=== PATIENT | male | born 1950 | race Caucasian/White ===

== ENCOUNTER 2016-11-10 12:52 | Inpatient (IN) | payer MEDICARE, OTHER ==
--- NOTE | ~2016-11-10 | HP ---
History And Physical [id number] [place]. [address] NAME: MEAGHAN FUENTES : 52 STATUS : ADM IN [facility]#: [id number] AGE: 66 ADM/REG DATE : 11/10/16 MR#: [id number] REPORT SERV DATE: 11/12/16 DICTATED BY: RIGOBERTO VAIL DATE: 11/11/16 REPORT STATUS : Draft TRANSCRIBED BY: MODMahad DATE: 11/11/16 DATE OF ADMISSION: 11/10/2016 CHIEF COMPLAINT: Change in normal attitude and fever. HISTORY OF PRESENT ILLNESS: The patient is a 66-year-old male with past medical history of Traverse's disease, dementia, ND with stent, COPD, pneumonia, PEG tube, who presents from [facility] with generalized weakness, change in overall function of mental status, although baseline appears to be fairly debilitated, minimally verbal except for a few noises. Also had reported fever. They have been constant, moderate severity. No pain or radiating symptoms have been reported per ER and EMS, as HPI is very difficult to obtain from the patient secondary to his mental status baseline. Additionally, the patient was reported to have cough, fever, or shortness of breath, but no reported swelling, nausea, or vomiting. Has been tolerating feeds. The patient is unable to report any worsening or relieving factors, but symptoms are still obviously present. Mental status, unable to obtain from the patient due to mental status, but were reported with fever, shortness of breath, and cough. PAST MEDICAL HISTORY: Obtained from [facility] on line, COPD, pneumonia, ND, stent history, dementia, PEG, Thuy's disease, chronic debility. SURGICAL HISTORY: PEG tube placement, ex lap. SOCIAL HISTORY: [facility]. No known alcohol, tobacco, or illicit use. FAMILY HISTORY: Thuy's per record, reports mother, sister, and two brothers. ALLERGIES: NO KNOWN DRUG ALLERGIES. HOME MEDICATIONS: Tylenol, duo nebs, aspirin, baclofen, Dulcolax, Cipro, Colace, Seroquel, Effexor, Geodon. PHYSICAL EXAMINATION: VITAL SIGNS: Blood pressure 134/43, temperature 97.9, pulse 106, respirations 20, O2 saturations 100% on 4 L. GENERAL: Thin, frail, ill appearing. Does interact and tracks, but interacts only with occasional motion or hand gesture, but very difficult for purposeful interaction at this time. EYES: No scleral icterus. ENT: Dry mucous membranes with poor dentition, poor oral care. NECK: No JVD. Supple. RESPIRATORY: Clear to auscultation. No wheezes. CHEST: Equal chest expansion. CV: Mildly tachycardic. No rubs. Cap refill less than 2 seconds. Warm extremities. GI: PEG tube with mild redness around PEG tube site. Nondistended. : Alas now placed. Normal external genitalia. History And Physical [address] [address] NAME: MEAGHAN FUENTES : 52 STATUS : ADM IN [facility]#: [id number] AGE: 66 ADM/REG DATE : 11/10/16 MR#: [id number] REPORT SERV DATE: 11/12/16 DICTATED BY: RIGOBERTO VAIL DATE: 11/11/16 REPORT STATUS : Draft TRANSCRIBED BY: KD DATE: 11/11/16 MUSCULOSKELETAL: Atrophied. Mild madison. Does have stage 1 on pressure site. SKIN: Warm and dry. Stage 1 ulcers on pressure sites including heels and dry skin. LYMPH: No cervical or supraclavicular lymphadenopathy grossly. HEME: No bleeding or bruising. NEURO: No chorea movements currently, but unclear baseline mental status, although is awake. Appears to be tracking. Very minimal purposeful communication interaction throughout stay. Atrophied muscles throughout. PSYCH: Unable to assess appropriately secondary to mental status. LABORATORY DATA: UA, large leukocyte esterase and nitrites. CMP; sodium of 176 confirmed on repeat, potassium 4.3, chloride 137, BUN and creatinine 64 and 0.93, glucose of 102, AST and ALT 53 and 79 respectively, lipase 264. CBC; WBC count 12, H and H 13.7 and 47.3, platelets 78, Legionella strep screen negative. Ammonia 34. BNP 47.2. Portable chest, no pleural effusion. Atelectatic bases. EKG, tachycardic. ASSESSMENT AND PLAN: 1. Hypovolemic hypernatremia, severe. 2. Acute metabolic encephalopathy. 3. Urinary tract infection. 4. Tachycardia. 5. Traverse's disease. 6. Chronic obstructive pulmonary disease history. 7. PEG tube/nutrition. 8. Elevated liver function tests. 9. Azotemia secondary to volume dehydration, present on arrival. 10.Stage I ulcers present on arrival with only mild redness. 11.Hypertension. 12.Coronary artery disease. 13.DNR. PLAN: 1. Hypovolemic hypernatremia. The patient with clinical hypovolemia with dry mucous membranes. Mild skin tenting. Dry membranes. Free water deficit calculated approximately 8.6 L. Does have possible lethargy if not encephalopathy component, but no seizure or coma episodes noted. We will need to monitor on telemetry. Serial BMPs to monitor for improvement and for cerebral osmotic shift. Goal for 6 to 10 mEq/L a day decrease. The patient's sodium was confirmed. The patient is on multiple medications that could be confounded including Geodon. We will decrease dose, limit medications as needed. Serum OSM and urine studies pending. We will give D5 1/2 W, water infusion at rate of 100 to attempt goal rate. Decrease with serial monitoring. Additionally, place on free water flushes 350 q.3 to 4 hours and have Nutrition also reassess. 2. Acute encephalopathy. Treat underlying hypernatremia and urinary tract infection. Optimize electrolytes. 3. Urinary tract infection. IV antibiotics. 4. Azotemia with volume depletion. IV fluids. Monitor closely electrolyte imbalance. Alas placed for strict I's and O's. History And Physical [address] [address] NAME: MEAGHAN FUENTES : 52 STATUS : ADM IN [facility]#: [id number] AGE: 66 ADM/REG DATE : 11/10/16 MR#: [id number] REPORT SERV DATE: 11/12/16 DICTATED BY: RIGOBERTO VAIL DATE: 11/11/16 REPORT STATUS : Draft TRANSCRIBED BY: MODMahad DATE: 11/11/16 5. Traverse's disease. Supportive. 6. Chronic obstructive pulmonary disease history. O2 p.r.n. 7. PEG tube nutrition. Resume tube feedings Jevity 1.5 at 30, goal rate 60 as tolerated. 8. Elevated LFTs. We will need to monitor. 9. Dementia history. Monitor. Reassess home medications. Possible confounders for hypernatremia. 10.Stage I ulcers. Barrier care with Mepilex and frequent turning. 11.Hypertension. Monitor. 12.Coronary artery disease. Continue home medications as tolerated. 13.DNR with POLST form. The patient with guarded prognosis due to underlying medical issues that were present on arrival and comorbidities. DDN/MODL Rigoberto Vail MD / [id number] CC: Royal Soto MD
--- NOTE | ~2016-11-10 | CN ---
Consultation Report [facility] [address] [place]. [address] NAME: MEAGHAN FUENTES : 52 STATUS : ADM IN [facility]#: [id number] AGE: 66 ADM/REG DATE : 11/10/16 MR#: [id number] REPORT SERV DATE: 11/11/16 DICTATED BY: LAUREANO HARDEN DATE: 11/10/16 REPORT STATUS : Draft TRANSCRIBED BY: MODL DATE: 11/10/16 NEPHROLOGY CONSULTATION DATE OF CONSULTATION: Nephrology consult from Dr. Foster. The consult is for severe hypernatremia. HISTORY OF PRESENT ILLNESS: Mr. 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 He is a [facility] resident and has significant dementia due to his neurologic condition, and he is currently a DNR status. He has a PEG tube and chronic indwelling Alas catheter and has a baseline water administration of 350 mL q.4 hours per [facility] report. He was recently treated with Cipro for an acute bronchitis, which he was treated for five days with and then presented to [facility] with fever and altered mental status and found to have severe dehydration with a sodium of 176 and was admitted to the hospital. He was initially given half normal saline with a reduction in his sodium to 175 and so he was changed to D5 water at 80 mL/h and was written for continuation of his PEG tube water. His urinary tract infection is being treated with ceftriaxone. He is unable to contribute at all to his history and chart review yields limited recent records per prior discharge summary. PAST MEDICAL HISTORY: Includes Thuy's chorea, coronary artery disease, hypertension, dyslipidemia, and history of acute kidney injury in the setting of hypovolemia and aspiration pneumonia from 2013. HOME MEDICATIONS: Include Tylenol; albuterol; DuoNeb; aspirin 81 mg daily; baclofen; Dulcolax; Cipro, last dose on 11/09/2016; Colace; Marylou; Lasix 40 mg daily; galantamine hydrobromide 8 mg b.i.d.; lactulose; metoprolol 12.5 mg b.i.d., milk of magnesia; polyethylene glycol; potassium 20 mEq b.i.d.; Seroquel 100 mg at bedtime; Effexor 75 mg b.i.d.; and Geodon IM as needed. He does not have family immediately available. ALLERGIES: NONE. FAMILY HISTORY: Unobtainable due to his mental status. SOCIAL HISTORY: Unobtainable due to his mental status. REVIEW OF SYSTEMS: Unobtainable due to his mental status. PHYSICAL EXAMINATION: VITAL SIGNS: Temperature is 98.2 and he has been afebrile here in the hospital, blood pressure 114/76, pulse of 115, respirations of 20, and O2 saturation 100%. Weight is bed weight and appears to be in the order of 125 pounds. Consultation Report [id number] [facility] [place]. [address] NAME: MEAGHAN FUENTES : 52 STATUS : ADM IN [facility]#: [id number] AGE: 66 ADM/REG DATE : 11/10/16 MR#: [id number] REPORT SERV DATE: 11/11/16 DICTATED BY: LAUREANO HARDEN DATE: 11/10/16 REPORT STATUS : Draft TRANSCRIBED BY: KD DATE: 11/10/16 GENERAL: His temples were shrunken when patient opens eyes, but is nonverbal. HEENT: His sclerae appear to be anicteric. His mucous membranes extremely dry. No JVD. CARDIOVASCULAR EXAM: S1, S2. Regular rate and rhythm without murmurs, rubs, or gallops. LUNGS: Clear to auscultation. Positive bowel sounds. Soft, nontender. No peripheral edema. No noted rash. SKIN: Dry. Skin turgor is somewhat poor. LABORATORY DATA: His sodium 135, potassium 3.3, chloride 137, bicarb 34, BUN 61, creatinine 0.84, glucose is 139, calcium is 8.3, magnesium 3.1, and phosphorus is 2.9. AST is 53, ALT 79. Lipase is 264 and ammonia of 34. His brain natriuretic peptide is 47, and his serum Osmo is 388. White count of 12, hemoglobin of 13.7, platelets of 78. His UA shows positive large leukocyte esterase, positive nitrate, greater than 182 white cells, and 20 red cells, many bacteria, 1 hyaline cast. ASSESSMENT AND PLAN: 1. Hypernatremia with dehydration in the setting of urinary tract infection, he may have been febrile to increase his insensible losses, but it is surprising that with his reported 2 L of water per day that he would have become less dehydrated. His water deficit depends on his weight, which is somewhat unreliable but essentially he appears to have at least 3.5 L deficit of free water. He is a gentleman who may only weigh 55- 60 kg. This is a severe hyponatremia and does increase his mortality. I would replete this water deficit slowly with a goal to keep his rate of correction 10 points per day or less and corrected over at least 3 days if not a little longer. I would check his labs every 6 hours to ensure that the rate of correction is appropriate and I would continue his home PEG water of approximately 2 L per day and add D5 water at 80 mL/h which will give him another 2 L a day. Will need to take into account ongoing losses for which urine electrolytes, strict I's and O's and attention to fevers, sweating, etc., will be important and his IV D5 water can be adjusted as needed. 2. Urinary tract infection. Agree with ceftriaxone. He has a chronic indwelling Alas catheter which may need to be changed. We will defer this to the primary. 3. Dementia with Nodaway's chorea. Per primary, patient is essentially nonverbal. Partners to follow tomorrow. ANNEMARIE/KD Laureano Harden MD / [id number] CC: Royal Stoo MD
--- NOTE | ~2016-11-10 | DS ---
Discharge Summary [facility] [address] [place]. 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 He was recently treated with Cipro for acute bronchitis, then came in to [facility] with fever, encephalopathy, severe sepsis due to UTI with severe dehydration, sodium 176. Placed on half normal saline and then was changed to D5 water and given 350 mL every four hours via his PEG and free water flushes. Placed on Rocephin. The patient's altered mental status did improve, was able to track with his eyeballs, and did have some screaming episodes consistent with Lamoure's dementia with psychiatric contribution. Placed back on his Seroquel, but lower dose. The patient's UTI eventually was sensitive to Macrobid and changed to Macrobid. The patient did not appear to have significant adrenal insufficiency. Sodium was corrected. White count was down to normal now. He was able to track with eyes, near his baseline mental status. The patient has very poor prognosis. Given his lack of mobility and interaction and inability to do ADLs due to Thuy's dementia, we spoke with the daughter and are considering discharge from facility to home with hospice if failure to thrive continues. The patient likely has atelectasis associated with low lung volumes, needs incentive spirometry. DISCHARGE MEDICATIONS: At this time will be aspirin 81 p.o. daily; lactulose 30 mL p.o. t.i.d.; Macrobid 100 p.o. b.i.d.; Seroquel 25 p.o. at bedtime; Effexor 75 p.o. b.i.d.; metoprolol tartrate 12.5 p.o. b.i.d., hold systolic less than 110; MiraLAX powder one packet daily; Ativan 0.5 per PEG t.i.d. p.r.n. agitation; Geodon p.r.n.; baclofen p.r.n.; KCl 10 mEq p.o. daily via PEG; free water flush 300 mL q.4 via PEG, facility incentive spirometry. Discharge today to facility on nasal cannula. Follow up with Neurology in four to eight weeks if has one. Follow up with PCP in two weeks. Consider possible hospice as an outpatient. We will make a referral at this time if family is interested. DISCHARGE DIAGNOSES: Severe dehydration; hypernatremia; severe sepsis due to urinary tract infection, Escherichia coli; Lamoure's chorea; thrombocytopenia, peripheral smear pending; hyperammonemia, improved; poor prognosis; failure to thrive. All questions were answered. It took well over 30 minutes to do. WST/KD Magdaleno Gonzalez DO / [id number] Discharge Summary [address] [address] NAME: MEAGHAN FUENTES : 52 STATUS : DIS IN PAT#: [id number] AGE: 66 ADM/REG DATE : 11/10/16 MR#: [id number] REPORT SERV DATE: 11/17/16 DICTATED BY: MAGDALENO GONZALEZ DATE: 11/16/16 REPORT STATUS : Draft TRANSCRIBED BY: MODL DATE: 11/16/16 CC: Magdaleno Gonzalez DO
[~2016-11-10 12:52] MED LIST: ALLEGRA-D24 HOUR PO; ALLEGRA180 PEG; ASAB PEG; ASAB PO; ATV.5 PEG; ATV.5 PO; BACTROINT TOP; EFFEX75 PEG; EFFEX75 PO; FLEX PEG; FLEX PO; HALDOL.5 PEG; HALDOL.5 PO; KLOR-CON 1010 MEQ PO; L40 PEG; L40 PO; LOP25 PEG; LOP25 PO; MEVACOR PEG; MEVACOR PO; MICRO-K10 MEQ PEG; RAZADYNE8 MG PEG; RAZADYNE8 MG PO; SEROQUEL1C PEG; SEROQUEL1C PO; TYLENOL ARTH650 MG PO; VANCO500 IV
[2016-11-10 13:39] LABS: BASOPHILS 0.1 %; BASOPHILS ABSOLUTE 0.01 10/3/uL (0.0-0.16); EOSINOPHILS 0.4 %; EOSINOPHILS ABSOLUTE 0.05 10/3/uL (0.0-0.53); ER CBC TAT 0 Hrs 10 Mins; HEMATOCRIT 47.3 % (40.0-51.0); HEMOGLOBIN 13.7 g/dL (13.6-17.8); IMMATURE GRANULOCYTES 0.2 %; IMMATURE GRANULOCYTES ABSOLUTE 0.02 10/3/uL (0.0-0.11); LYMPHOCYTES 9.7 %; LYMPHOCYTES ABSOLUTE 1.17 10/3/uL (0.67-4.30); MANUAL DIFF NO %; MEAN CORPUSCULAR HEMOGLOB 32.3 pg (26.0-34.0); MEAN CORPUSCULAR VOLUME 111.6 fL (80-100); MEAN PLATELET VOLUME 14.3 fL (9.2-13.0); MONOCYTES 6.8 %; MONOCYTES ABSOLUTE 0.82 10/3/uL (0.21-1.20); NEUTROPHILS 82.8 %; NEUTROPHILS ABSOLUTE 9.96 10/3/uL (2.02-8.40); PLATELET COUNT 78 10/3/uL (150-400); RBC DISTRIBUTION WIDTH 16.1 % (12.0-16.0); RED CELL COUNT 4.24 10/6/uL (4.7-6.1)
[2016-11-10 13:44] LABS: ASCORBIC ACID (UR NOT ORDER) 40 (NEG); BILIRUBIN, URINE NEGATIVE (NEG); ER URINALYSIS TAT 0 Hrs 15 Mins; KETONE, URINE NEGATIVE (NEG); LEUKOCYTE ESTERASE(NOT OR LARGE (NEG); NITRITE (URINE) POS (NEG); WBC (NOT ORDERED) (RFLEX) > 182 (0-5)
[2016-11-10 13:54] LABS: A/G RATIO 0.6 (0.7-1.9); ALBUMIN 2.6 G/DL (3.5-5.0); CALCIUM, SERUM 8.6 MG/DL (8.5-10.4); CO2 (CARBON DIOXIDE) 33 MMOL/L (24-34); CREATININE 0.93 MG/DL (0.70-1.30); GFR AFRICAN AMERICAN 99 ML/MIN (>=60); GFR NON AFRICAN AMERICAN 86 ML/MIN (>=60); GLOBULIN 4.6 G/DL (2.5-4.1); GLUCOSE, SERUM 102 MG/DL (60-99); SGPT(ALT) 79 U/L (5-65); TOTAL BILIRUBIN 0.6 MG/DL (0-1.2); TOTAL PROTEIN 7.2 G/DL (6.0-8.5)
[2016-11-10 13:55] LABS: ALKALINE PHOSPHATASE 78 U/L (45-117); BUN (BLOOD UREA NITROGEN) 64 MG/DL (6-23); CHLORIDE, SERUM 137 MMOL/L (96-112); SODIUM, SERUM 176 MMOL/L (135-148)
[2016-11-10 13:58] LABS: POTASSIUM, SERUM 4.3 MMOL/L (3.5-5.3); SGOT(AST) 53 U/L (5-40)
[2016-11-10] MEDS ORDERED: CIP5 PEG (14:25)
[2016-11-10] MEDS ORDERED: ASAB PEG (14:25)
[2016-11-10] MEDS ORDERED: ALLEGRA180 PEG (14:26)
[2016-11-10] MEDS ORDERED: L40 PEG (14:27)
[2016-11-10] MEDS ORDERED: RAZADYNE8 MG PEG (14:27)
[2016-11-10 14:28] LABS: PLATELET ESTIMATE DEC (ADEQUATE)
[2016-11-10] MEDS ORDERED: LOP25 PEG (14:28)
[2016-11-10 14:29] LABS: GIANT PLATELET RARE
[2016-11-10] MEDS ORDERED: MIRALAX POWDER1 PKT PEG (14:29)
[2016-11-10] MEDS ORDERED: KCL20UDL PEG (14:29)
[2016-11-10] MEDS ORDERED: SEROQUEL1C PEG (14:31)
[2016-11-10] MEDS ORDERED: EFFEX75 PEG (14:31)
[2016-11-10] MEDS ORDERED: BISR PR (14:33)
[2016-11-10] MEDS ORDERED: 8 HOUR650 MG PEG (14:33)
[2016-11-10] MEDS ORDERED: LIOR10 PEG (14:33)
[2016-11-10] MEDS ORDERED: DSS PEG (14:34)
[2016-11-10] MEDS ORDERED: DUONEB INH (14:35)
[2016-11-10] MEDS ORDERED: [UNRECOGNIZED DRUG - OTHER] IM (14:36)
[2016-11-10] MEDS ORDERED: ATV.5 PEG (14:37)
[2016-11-10] MEDS ORDERED: CONSTULOSE PEG (14:37)
[2016-11-10] MEDS ORDERED: MOMUD PEG (14:38)
[2016-11-10 16:24] LABS: BUN (BLOOD UREA NITROGEN) 63 MG/DL (6-23); CALCIUM, SERUM 7.9 MG/DL (8.5-10.4); CHLORIDE, SERUM 138 MMOL/L (96-112); CO2 (CARBON DIOXIDE) 33 MMOL/L (24-34); GFR AFRICAN AMERICAN 104 ML/MIN (>=60); GFR NON AFRICAN AMERICAN 89 ML/MIN (>=60); POTASSIUM, SERUM 3.9 MMOL/L (3.5-5.3)
[2016-11-10 16:26] LABS: GLUCOSE, SERUM 128 MG/DL (60-99); SODIUM, SERUM 176 MMOL/L (135-148)
[2016-11-10 19:01] LABS: PHOSPHORUS, SERUM 2.9 MG/DL (2.5-4.5); ULTRASENSITIVE TSH 0.867 MCIU/ML (0.358-3.740)
[2016-11-10 19:58] LABS: BUN (BLOOD UREA NITROGEN) 61 MG/DL (6-23); CALCIUM, SERUM 8.3 MG/DL (8.5-10.4); CHLORIDE, SERUM 137 MMOL/L (96-112); CO2 (CARBON DIOXIDE) 34 MMOL/L (24-34); CREATININE 0.84 MG/DL (0.70-1.30); GFR AFRICAN AMERICAN 106 ML/MIN (>=60); GFR NON AFRICAN AMERICAN 92 ML/MIN (>=60); GLUCOSE, SERUM 139 MG/DL (60-99); POTASSIUM, SERUM 3.3 MMOL/L (3.5-5.3)
[2016-11-10 19:59] LABS: SODIUM, SERUM 175 MMOL/L (135-148)
[2016-11-10 20:08] LABS: B NATRIURETIC PEPTIDE (BNP) 47.2 PG/ML (< 100.0)
[2016-11-11 06:39] LABS: MEAN CORPUS HGB CONC 29.1 g/dL (32.0-36.0); MEAN CORPUSCULAR HEMOGLOB 32.3 pg (26.0-34.0); MEAN CORPUSCULAR VOLUME 111.2 fL (80-100); MEAN PLATELET VOLUME 13.6 fL (9.2-13.0); PLATELET COUNT 56 10/3/uL (150-400); RBC DISTRIBUTION WIDTH 15.9 % (12.0-16.0); WHITE BLOOD CELLS 8.1 10/3/uL (4.5-10.5)
[2016-11-11 06:43] LABS: HEMATOCRIT 36.8 % (40.0-51.0); HEMOGLOBIN 10.7 g/dL (13.6-17.8); MANUAL DIFF YES %; RED CELL COUNT 3.31 10/6/uL (4.7-6.1)
[2016-11-11 06:54] LABS: AMMONIA 41 UMOL/L (11-32)
[2016-11-11 06:58] LABS: ALBUMIN 2.4 G/DL (3.5-5.0); CALCIUM, SERUM 8.5 MG/DL (8.5-10.4); CHLORIDE, SERUM 132 MMOL/L (96-112); CO2 (CARBON DIOXIDE) 34 MMOL/L (24-34); CREATININE 0.68 MG/DL (0.70-1.30); GFR AFRICAN AMERICAN 116 ML/MIN (>=60); GFR NON AFRICAN AMERICAN 100 ML/MIN (>=60); GLUCOSE, SERUM 146 MG/DL (60-99); POTASSIUM, SERUM 3.4 MMOL/L (3.5-5.3); SGOT(AST) 33 U/L (5-40); SGPT(ALT) 57 U/L (5-65); TOTAL BILIRUBIN 0.8 MG/DL (0-1.2); TOTAL PROTEIN 5.8 G/DL (6.0-8.5)
[2016-11-11 07:00] LABS: A/G RATIO 0.7 (0.7-1.9); ALKALINE PHOSPHATASE 63 U/L (45-117); BUN (BLOOD UREA NITROGEN) 54 MG/DL (6-23); GLOBULIN 3.4 G/DL (2.5-4.1); SODIUM, SERUM 170 MMOL/L (135-148)
[2016-11-11 07:15] LABS: BAND NEUTROPHILS 6 %; EOSINOPHILS 3 %; EOSINOPHILS ABSOLUTE (CALC) 0.24 10/3/uL (0.0-0.53); LYMPHOCYTES 15 %; LYMPHOCYTES ABSOLUTE (CALC) 1.22 10/3/uL (0.67-4.30); MONOCYTES 8 %; MONOCYTES ABSOLUTE (CALC) 0.65 10/3/uL (0.21-1.20); NEUTROPHILS ABSOLUTE (CALC) 5.99 10/3/uL (2.02-8.40); PLATELET ESTIMATE DEC (ADEQUATE); SEGMENTED NEUTROPHIL (0) 68 %; TOTAL NUCLEATED CELLS 100
[2016-11-11 09:11] LABS: BUN (BLOOD UREA NITROGEN) 51 MG/DL (6-23); CALCIUM, SERUM 8.2 MG/DL (8.5-10.4); CHLORIDE, SERUM 133 MMOL/L (96-112); CO2 (CARBON DIOXIDE) 31 MMOL/L (24-34); CREATININE 0.57 MG/DL (0.70-1.30); GFR AFRICAN AMERICAN 125 ML/MIN (>=60); GFR NON AFRICAN AMERICAN 108 ML/MIN (>=60); GLUCOSE, SERUM 149 MG/DL (60-99); POTASSIUM, SERUM 3.2 MMOL/L (3.5-5.3); SODIUM, SERUM 170 MMOL/L (135-148)
[2016-11-11 09:50] LABS: CREATININE, URINE 61.3 MG/DL
[2016-11-11 12:09] LABS: BUN (BLOOD UREA NITROGEN) 48 MG/DL (6-23); CALCIUM, SERUM 8.3 MG/DL (8.5-10.4); CHLORIDE, SERUM 132 MMOL/L (96-112); CO2 (CARBON DIOXIDE) 31 MMOL/L (24-34); GFR AFRICAN AMERICAN 122 ML/MIN (>=60); GFR NON AFRICAN AMERICAN 106 ML/MIN (>=60); GLUCOSE, SERUM 146 MG/DL (60-99)
[2016-11-11 12:10] LABS: POTASSIUM, SERUM 4.3 MMOL/L (3.5-5.3); SODIUM, SERUM 167 MMOL/L (135-148)
[2016-11-11 17:59] LABS: BUN (BLOOD UREA NITROGEN) 46 MG/DL (6-23); CALCIUM, SERUM 8.1 MG/DL (8.5-10.4); CHLORIDE, SERUM 129 MMOL/L (96-112); CO2 (CARBON DIOXIDE) 30 MMOL/L (24-34); CREATININE 0.55 MG/DL (0.70-1.30); GFR AFRICAN AMERICAN 127 ML/MIN (>=60); GFR NON AFRICAN AMERICAN 109 ML/MIN (>=60); GLUCOSE, SERUM 148 MG/DL (60-99); POTASSIUM, SERUM 3.7 MMOL/L (3.5-5.3)
[2016-11-11 18:01] LABS: SODIUM, SERUM 164 MMOL/L (135-148)
[2016-11-12 03:48] LABS: BASOPHILS 0.3 %; BASOPHILS ABSOLUTE 0.02 10/3/uL (0.0-0.16); EOSINOPHILS 3.9 %; EOSINOPHILS ABSOLUTE 0.24 10/3/uL (0.0-0.53); HEMATOCRIT 33.6 % (40.0-51.0); HEMOGLOBIN 9.8 g/dL (13.6-17.8); IMMATURE GRANULOCYTES 0.2 %; IMMATURE GRANULOCYTES ABSOLUTE 0.01 10/3/uL (0.0-0.11); LYMPHOCYTES 19.5 %; LYMPHOCYTES ABSOLUTE 1.19 10/3/uL (0.67-4.30); MANUAL DIFF NO %; MEAN CORPUS HGB CONC 29.2 g/dL (32.0-36.0); MEAN CORPUSCULAR HEMOGLOB 31.6 pg (26.0-34.0); MEAN CORPUSCULAR VOLUME 108.4 fL (80-100); MEAN PLATELET VOLUME 13.8 fL (9.2-13.0); MONOCYTES 3.8 %; MONOCYTES ABSOLUTE 0.23 10/3/uL (0.21-1.20); NEUTROPHILS 72.3 %; NEUTROPHILS ABSOLUTE 4.41 10/3/uL (2.02-8.40); PLATELET COUNT 51 10/3/uL (150-400); RBC DISTRIBUTION WIDTH 15.3 % (12.0-16.0); WHITE BLOOD CELLS 6.1 10/3/uL (4.5-10.5)
[2016-11-12 04:00] LABS: CALCIUM, SERUM 7.8 MG/DL (8.5-10.4); CHLORIDE, SERUM 127 MMOL/L (96-112); CO2 (CARBON DIOXIDE) 31 MMOL/L (24-34); CREATININE 0.51 MG/DL (0.70-1.30); GFR AFRICAN AMERICAN 131 ML/MIN (>=60); GFR NON AFRICAN AMERICAN 113 ML/MIN (>=60); GLUCOSE, SERUM 125 MG/DL (60-99); PHOSPHORUS, SERUM 2.5 MG/DL (2.5-4.5); POTASSIUM, SERUM 3.7 MMOL/L (3.5-5.3)
[2016-11-12 04:01] LABS: BUN (BLOOD UREA NITROGEN) 42 MG/DL (6-23); SODIUM, SERUM 163 MMOL/L (135-148)
[2016-11-12 04:11] LABS: BAND NEUTROPHILS 6 %; EOSINOPHILS 1 %; EOSINOPHILS ABSOLUTE (CALC) 0.06 10/3/uL (0.0-0.53); LYMPHOCYTES 12 %; LYMPHOCYTES ABSOLUTE (CALC) 0.73 10/3/uL (0.67-4.30); MONOCYTES 2 %; MONOCYTES ABSOLUTE (CALC) 0.12 10/3/uL (0.21-1.20); NEUTROPHILS ABSOLUTE (CALC) 5.19 10/3/uL (2.02-8.40); SEGMENTED NEUTROPHIL (0) 79 %; TOTAL NUCLEATED CELLS 100
[2016-11-12 04:12] LABS: MACROCYTES 1+ (5-10/OIF) (0-5/OIF); PLATELET ESTIMATE DEC (ADEQUATE)
[2016-11-13 06:12] LABS: BASOPHILS 0.2 %; BASOPHILS ABSOLUTE 0.01 10/3/uL (0.0-0.16); EOSINOPHILS 3.9 %; EOSINOPHILS ABSOLUTE 0.18 10/3/uL (0.0-0.53); IMMATURE GRANULOCYTES 0.6 %; IMMATURE GRANULOCYTES ABSOLUTE 0.03 10/3/uL (0.0-0.11); LYMPHOCYTES 22.7 %; LYMPHOCYTES ABSOLUTE 1.05 10/3/uL (0.67-4.30); MEAN CORPUSCULAR HEMOGLOB 33.1 pg (26.0-34.0); MEAN PLATELET VOLUME 13.3 fL (9.2-13.0); MONOCYTES 4.5 %; MONOCYTES ABSOLUTE 0.21 10/3/uL (0.21-1.20); NEUTROPHILS 68.1 %; NEUTROPHILS ABSOLUTE 3.14 10/3/uL (2.02-8.40); PLATELET COUNT 50 10/3/uL (150-400); RBC DISTRIBUTION WIDTH 14.6 % (12.0-16.0); RED CELL COUNT 2.72 10/6/uL (4.7-6.1); WHITE BLOOD CELLS 4.6 10/3/uL (4.5-10.5)
[2016-11-13 06:13] LABS: HEMATOCRIT 28.4 % (40.0-51.0); MANUAL DIFF NO %; MEAN CORPUS HGB CONC 31.7 g/dL (32.0-36.0); MEAN CORPUSCULAR VOLUME 104.4 fL (80-100)
[2016-11-13 06:30] LABS: CALCIUM, SERUM 7.9 MG/DL (8.5-10.4); CHLORIDE, SERUM 118 MMOL/L (96-112); CO2 (CARBON DIOXIDE) 29 MMOL/L (24-34); CREATININE 0.42 MG/DL (0.70-1.30); GFR AFRICAN AMERICAN 142 ML/MIN (>=60); GFR NON AFRICAN AMERICAN 122 ML/MIN (>=60); GLUCOSE, SERUM 131 MG/DL (60-99); PHOSPHORUS, SERUM 2.4 MG/DL (2.5-4.5); POTASSIUM, SERUM 3.3 MMOL/L (3.5-5.3); SODIUM, SERUM 154 MMOL/L (135-148)
[2016-11-13 06:34] LABS: BUN (BLOOD UREA NITROGEN) 30 MG/DL (6-23)
[2016-11-13 07:14] LABS: MACROCYTES 1+ (5-10/OIF) (0-5/OIF)
[2016-11-14 09:54] LABS: ALBUMIN 2.2 G/DL (3.5-5.0); CALCIUM, SERUM 7.7 MG/DL (8.5-10.4); CHLORIDE, SERUM 110 MMOL/L (96-112); CO2 (CARBON DIOXIDE) 30 MMOL/L (24-34); CREATININE 0.44 MG/DL (0.70-1.30); GFR AFRICAN AMERICAN 139 ML/MIN (>=60); GFR NON AFRICAN AMERICAN 120 ML/MIN (>=60); GLUCOSE, SERUM 115 MG/DL (60-99); PHOSPHORUS, SERUM 2.3 MG/DL (2.5-4.5); POTASSIUM, SERUM 3.3 MMOL/L (3.5-5.3); SODIUM, SERUM 148 MMOL/L (135-148)
[2016-11-14 09:55] LABS: BUN (BLOOD UREA NITROGEN) 19 MG/DL (6-23)
[2016-11-15 08:56] LABS: BASOPHILS 0.2 %; BASOPHILS ABSOLUTE 0.01 10/3/uL (0.0-0.16); EOSINOPHILS 3.1 %; EOSINOPHILS ABSOLUTE 0.19 10/3/uL (0.0-0.53); HEMATOCRIT 29.3 % (40.0-51.0); HEMOGLOBIN 9.6 g/dL (13.6-17.8); IMMATURE GRANULOCYTES 0.5 %; IMMATURE GRANULOCYTES ABSOLUTE 0.03 10/3/uL (0.0-0.11); LYMPHOCYTES 17.8 %; LYMPHOCYTES ABSOLUTE 1.09 10/3/uL (0.67-4.30); MEAN CORPUS HGB CONC 32.8 g/dL (32.0-36.0); MEAN CORPUSCULAR HEMOGLOB 32.9 pg (26.0-34.0); MEAN PLATELET VOLUME 13.5 fL (9.2-13.0); MONOCYTES ABSOLUTE 0.37 10/3/uL (0.21-1.20); NEUTROPHILS 72.4 %; NEUTROPHILS ABSOLUTE 4.44 10/3/uL (2.02-8.40); RBC DISTRIBUTION WIDTH 14.2 % (12.0-16.0); RED CELL COUNT 2.92 10/6/uL (4.7-6.1); WHITE BLOOD CELLS 6.1 10/3/uL (4.5-10.5)
[2016-11-15 08:57] LABS: MANUAL DIFF NO %; MEAN CORPUSCULAR VOLUME 100.3 fL (80-100); PLATELET COUNT 69 10/3/uL (150-400)
[2016-11-15 09:16] LABS: ALBUMIN 2.2 G/DL (3.5-5.0); CHLORIDE, SERUM 108 MMOL/L (96-112); CO2 (CARBON DIOXIDE) 30 MMOL/L (24-34); CREATININE 0.34 MG/DL (0.70-1.30); GFR AFRICAN AMERICAN 154 ML/MIN (>=60); GFR NON AFRICAN AMERICAN 133 ML/MIN (>=60); GLUCOSE, SERUM 108 MG/DL (60-99); PHOSPHORUS, SERUM 2.7 MG/DL (2.5-4.5); POTASSIUM, SERUM 3.3 MMOL/L (3.5-5.3); SODIUM, SERUM 145 MMOL/L (135-148)
[2016-11-15 09:17] LABS: BUN (BLOOD UREA NITROGEN) 15 MG/DL (6-23)
[2016-11-15 09:19] LABS: MACROCYTES 1+ (5-10/OIF) (0-5/OIF); PLATELET ESTIMATE DEC (ADEQUATE)
[2016-11-15 10:12] LABS: SMEAR FOR ABNORMAL CELLS SEE PATHOLOGY REPORT
[2016-11-16 10:22] LABS: HEMATOCRIT 27.6 % (40.0-51.0); HEMOGLOBIN 9.1 g/dL (13.6-17.8); MEAN PLATELET VOLUME 13.3 fL (9.2-13.0); PLATELET COUNT 71 10/3/uL (150-400); RBC DISTRIBUTION WIDTH 14.8 % (12.0-16.0); RED CELL COUNT 2.84 10/6/uL (4.7-6.1); WHITE BLOOD CELLS 5.8 10/3/uL (4.5-10.5)
[2016-11-16 10:25] LABS: MANUAL DIFF YES %; MEAN CORPUSCULAR VOLUME 97.2 fL (80-100)
[2016-11-16 10:44] LABS: BUN (BLOOD UREA NITROGEN) 16 MG/DL (6-23); CHLORIDE, SERUM 108 MMOL/L (96-112); CO2 (CARBON DIOXIDE) 29 MMOL/L (24-34); CREATININE 0.42 MG/DL (0.70-1.30); GFR AFRICAN AMERICAN 142 ML/MIN (>=60); GFR NON AFRICAN AMERICAN 122 ML/MIN (>=60); GLUCOSE, SERUM 104 MG/DL (60-99); POTASSIUM, SERUM 3.3 MMOL/L (3.5-5.3); SODIUM, SERUM 144 MMOL/L (135-148)
[2016-11-16 10:51] LABS: EOSINOPHILS 1 %; EOSINOPHILS ABSOLUTE (CALC) 0.06 10/3/uL (0.0-0.53); LYMPHOCYTES 11 %; LYMPHOCYTES ABSOLUTE (CALC) 0.64 10/3/uL (0.67-4.30); MONOCYTES 8 %; MONOCYTES ABSOLUTE (CALC) 0.46 10/3/uL (0.21-1.20); NEUTROPHILS ABSOLUTE (CALC) 4.64 10/3/uL (2.02-8.40); PLATELET ESTIMATE DEC (ADEQUATE); RBC MORPHOLOGY NORM (NORMAL); SEGMENTED NEUTROPHIL (0) 80 %; TOTAL NUCLEATED CELLS 100
== END 2016-11-16 17:39 | DRG 871 ==
LOC: ER 12:52 → 7NO 16:56
PROVIDERS: Emergency Medicine; Internal Medicine; Internal Medicine Nephrology; Nurse Practitioner; Registered Nurse; Student in an Organized Health Care Education/Training Program
DX: A41.9 Sepsis, unspecified organism (principal); G93.41 Metabolic encephalopathy; E87.0 Hyperosmolality and hypernatremia; E46 Unspecified protein-calorie malnutrition; G10 Huntington's disease; L89.621 Pressure ulcer of left heel, stage 1; L89.611 Pressure ulcer of right heel, stage 1; D69.6 Thrombocytopenia, unspecified; N39.0 Urinary tract infection, site not specified; J98.11 Atelectasis; Z68.1 Body mass index [BMI] 19.9 or less, adult; E86.1 Hypovolemia; J44.9 Chronic obstructive pulmonary disease, unspecified; I10 Essential (primary) hypertension; Z66 Do not resuscitate; I25.10 Atherosclerotic heart disease of native coronary artery without angina pectoris; R65.20 Severe sepsis without septic shock; E86.0 Dehydration; R62.7 Adult failure to thrive; B96.20 Unspecified Escherichia coli [E. coli] as the cause of diseases classified elsewhere
CPT/HCPCS: 71010; 80048; 80053; 80069; 81001; 82140; 82533; 82570; 83690; 83735; 83880; 83930; 83935; 84100; 84132; 84133; 84295; 84300; 84443; 85025; 87040; 87077; 87086; 87186; 87449; 93005; 97161-GP; 99291; A9270-GY; G8978-CN-GP; G8979-CN-GP; G8980-CN-GP